=== PATIENT | female | born 1970 | race Caucasian/White ===

== ENCOUNTER 2023-11-10 09:36 | Emergency (ER) | payer OTHER, BC, SELFPAY ==
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
[2023-11-10 09:40] VITALS: BP 107/68; PULSE 85; RESP 14; TEMP 36.6; O2SAT 97
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
[2023-11-10] MEDS: ACETAMINOPHEN 500 MG TABLET 1000 MG PO (10:42)
[2023-11-10 10:43] VITALS: BP 124/86; PULSE 69; RESP 14; O2SAT 97
[2023-11-10 10:52] VITALS: BP 124/86; PULSE 74; RESP 16; O2SAT 99
== END 2023-11-10 10:54 | disposition home or self-care (01) ==
PROVIDERS: Emergency Provider Physician Assistant
DX: S16.1XXA Strain of muscle, fascia and tendon at neck level, initial encounter (principal); S49.91XA Unspecified injury of right shoulder and upper arm, initial encounter; I10 Essential (primary) hypertension; V49.40XA Driver injured in collision with unspecified motor vehicles in traffic accident, initial encounter
CPT/HCPCS: 70450; 72125; 73030; 99284; A9270